=== PATIENT | female | born 1970 | race Caucasian/White ===

== ENCOUNTER → 2024-02-28 13:11 | Outpatient (REF) | payer BC, SELFPAY | LOC: RAD 13:11 | PROVIDERS: ATTENDING PHYSICIAN Family Medicine Sports Medicine; FAMILY PHYSICIAN Internal Medicine | DX: M25.562 Pain in left knee (principal) | CPT/HCPCS: 73562; 73565 ==

== ENCOUNTER → 2024-08-02 17:16 | Outpatient (REF) | payer BC, SELFPAY | LOC: RAD 17:16 | PROVIDERS: ATTENDING PHYSICIAN Family Medicine Sports Medicine; FAMILY PHYSICIAN Internal Medicine | DX: M25.552 Pain in left hip (principal) | CPT/HCPCS: 73502 ==

== ENCOUNTER → 2024-09-05 06:21 | Outpatient (REF) | payer BC, SELFPAY | LOC: WDC 06:21 | PROVIDERS: ATTENDING PHYSICIAN Nurse Practitioner Primary Care | DX: Z12.31 Encounter for screening mammogram for malignant neoplasm of breast (principal); E78.2 Mixed hyperlipidemia; M32.8 Other forms of systemic lupus erythematosus; Z82.3 Family history of stroke | CPT/HCPCS: 77063; 77067; 93880 ==

== ENCOUNTER → 2024-09-05 06:25 | Outpatient (REF) | payer SELFPAY | LOC: RAD 06:25 | PROVIDERS: ATTENDING PHYSICIAN Nurse Practitioner Primary Care | DX: E78.2 Mixed hyperlipidemia (principal) | CPT/HCPCS: 75571 ==